=== PATIENT | female | born 1960 | race Caucasian/White ===

== ENCOUNTER 2020-09-26 09:33 | Emergency (ER) | payer BC ==
[~2020-09-26] VITALS: Ht 165.1 cm; Wt 81.1 kg
[2020-09-26 09:44] VITALS: BP 134/68
--- NOTE | 2020-09-26 10:02 | NUR ---
PT COMES IN WITH PAIN AND SWELLING TO RIGHT ANKLE. PT STATES SYMPTOMS STARTED "A COUPLE DAYS AGO". PT STATES NO INJURY THAT SHE IS AWARE OF. PT STATES SHE HAS A HISTORY OF CELLULITIS. MONITORS CONNECTED. NAD. CALL LIGHT W/IN REACH.
--- NOTE | 2020-09-26 10:13 | NUR ---
PT AMBULATED TO DISCHARGE. PT ENCOURAGED TO FOLLOWUP DISCUSSED. PT EDUCATED TO RETURN TO THE ED WITH WORSENING SYMPTOMS. RX GIVEN.
== END 2020-09-26 10:16 | disposition home or self-care (01) ==
LOC: ED 10:04
DX: L03.116 Cellulitis of left lower limb (principal)
CPT/HCPCS: 99283

== ENCOUNTER 2021-03-31 08:42 | Emergency (ER) | payer BC ==
[~2021-03-31] VITALS: Ht 165.1 cm; Wt 76.4 kg
[2021-03-31 08:45] VITALS: BP 121/77
[2021-03-31] MEDS ORDERED: NEOSPORIN OINT. PKT 1 PACKET ONE (08:59)
[2021-03-31] MEDS ORDERED: LIDOCAINE-MPF 1%, 5ML ONE ×2 (08:59→09:00)
[2021-03-31] MEDS ORDERED: DIPH,PERTUSS(ACELL),TET VAC/PF 0.5 ML IM-VACC ONE ×2 (08:59→09:00)
[2021-03-31] MEDS ORDERED: LIDOCAINE-MPF 1%, 5ML INFIL ONE (09:00)
== END 2021-03-31 10:00 | disposition home or self-care (01) ==
LOC: ED 09:16
DX: S61.412A Laceration without foreign body of left hand, initial encounter (principal); X58.XXXA Exposure to other specified factors, initial encounter; Y93.89 Activity, other specified; Y92.009 Unspecified place in unspecified non-institutional (private) residence as the place of occurrence of the external cause; Y99.8 Other external cause status
CPT/HCPCS: 12042; 90471; 90715